=== PATIENT | male | born 1980 | race Two or more races ===

== ENCOUNTER 2021-12-10 19:38 | Emergency (ER) | payer SELFPAY ==
[~2021-12-10] VITALS: Ht 162.6 cm; Wt 72.6 kg
[2021-12-10 19:40] VITALS: BP_SYST 141
--- NOTE | 2021-12-10 19:40 | NUR ---
PATIENT BROUGHT TO [facility] BED, WAITING FOR MD MEYERS.
--- NOTE | 2021-12-10 19:44 | NUR ---
ALEJO BENSON FOR MEDICAL CLEARANCE/OK TO BOOK. PER REPORT PT HAS INFECTION TO PENILE AREA, DENIES OTHER COMPLAINTS AT THIS TIME. PMH:DM,HTN PT AAOX4, NO SOB NOTED AND NOT IN ANY DISTRESS AT THIS TIME, PENDING MD MEYERS.
--- NOTE | 2021-12-10 19:55 | NUR ---
DR. GARCIA AT BEDSIDE ASSESSING PATIENT.
[2021-12-10] MEDS ORDERED: NACL 0.9% 2,000 ML IV ONE (20:15)
[2021-12-10 20:32] LABS: BASOPHILS % (AUTO) 0.4 % (0.0-2.0); EOSINOPHILS % (AUTO) 0.2 % (0.0-4.0); HEMATOCRIT 45.2 % (36-54); HEMOGLOBIN 15.4 g/dL (14.0-18.0); LYMPHOCYTES # (AUTO) 1.7 K/uL (1.0-5.5); LYMPHOCYTES % (AUTO) 13.4 % (20.5-51.5); MEAN CORPUSCULAR HEMOGLOBIN 28 pg (27-31); MEAN CORPUSCULAR HGB CONC 34 % (32-36); MEAN CORPUSCULAR VOLUME 82 fL (79.0-98.0); MONOCYTES # (AUTO) 0.7 K/uL (0.0-1.0); MONOCYTES % (AUTO) 5.8 % (1.7-9.3); NEUTROPHILS # (AUTO) 10.1 K/uL (1.8-7.7); NEUTROPHILS % (AUTO) 80.2 % (40.0-70.0); PLATELET COUNT (AUTO) 277 K/uL (130-430); RED CELL DISTRIBUTION WIDTH 13.2 % (9.0-15.0); WHITE BLOOD COUNT (AUTO) 12.7 K/uL (4.8-10.8)
[2021-12-10 20:39] LABS: ANION GAP 13 (5-15); CALCIUM 9.1 mg/dL (8.4-11.0); CHLORIDE 95 mmol/L (98-107); CREATININE 0.96 mg/dL (0.55-1.30); POTASSIUM 3.7 mmol/L (3.5-5.1); UREA NITROGEN, BLOOD 17 mg/dL (8-21)
[2021-12-10 20:42] LABS: ACETONE, SERUM TRACE (NEGATIVE)
[2021-12-10 20:45] LABS: ALANINE AMINOTRANSFERASE 42 U/L (12-78); ALBUMIN 3.4 g/dL (3.4-4.8); ASPARTATE AMINOTRANSFERASE 20 U/L (10-37); TOTAL BILIRUBIN 0.5 mg/dL (0.0-1.0)
[2021-12-10 20:54] LABS: GLUCOSE 456 mg/dL (70-99)
--- NOTE | 2021-12-10 21:14 | NUR ---
REPEAT BLOOD GLUCOSE IS 328, MD AWARE.
[2021-12-10 21:16] LABS: BILIRUBIN,URINE NEGATIVE (NEGATIVE); BLOOD, URINE NEGATIVE (NEGATIVE); CLARITY/URINE CLEAR (CLEAR); COLOR,URINE YELLOW (YELLOW); GLUCOSE,URINE 3+ (NEGATIVE); KETONES,URINE 2+ (NEGATIVE); LEUKOCYTE ESTERASE ,URINE NEGATIVE (NEGATIVE); NITRITE, URINE NEGATIVE (NEGATIVE); PH,URINE 5.5 (5.0-8.0); PROTEIN URINE NEGATIVE (NEGATIVE); UROBILINOGEN,URINE 0.2 (0.2-1.0)
--- NOTE | 2021-12-10 21:35 | NUR ---
ALL DISCHARGE INSTRUCTIONS GIVEN TO PATIENT AND LASO. DR. GARCIA AT BEDSIDE DOING ASSESSMENT, NO FURTHER MEDICAL INTERVENTION NEEDED.
--- NOTE | 2021-12-10 21:35 | NUR ---
Patient given written and verbal discharge instructions and verbalizes understanding. ER MD discussed with patient the results and treatment provided. Patient in stable condition. ID arm band removed. IV catheter removed intact and dressing applied, no active bleeding. Rx of N/A given. Patient educated on pain management and to follow up with PMD. Pain Scale . Opportunity for questions provided and answered. Medication side effect fact sheet provided.
[2021-12-10 22:26] LABS: BACTERIA,URINE RARE /HPF (None Seen); MUCUS,URINE None Seen /LPF (None Seen); RBC,URINE 0-3 /HPF (0-3); WBC,URINE 0-3 /HPF (0-3)
== END 2021-12-10 21:34 ==
LOC: SED 19:38
DX: Z91.14 Patient's other noncompliance with medication regimen (principal); N48.1 Balanitis; E11.9 Type 2 diabetes mellitus without complications; Z79.899 Other long term (current) drug therapy
CPT/HCPCS: 99283; 96360; 80053; 81000; 82009; 82962; 85025; 36415; 36600; 82803; J7030